=== PATIENT | male | born 1985 | race Caucasian/White ===

== ENCOUNTER 2022-09-28 18:14 | Emergency (ER) | payer OTHER, SELFPAY ==
[2022-09-28 18:17] VITALS: BP 118/76; PULSE 96; RESP 15; O2SAT 96; BMI 31.5
[2022-09-28 18:37] VITALS: RESP 14
--- NOTE | 2022-09-28 18:53 | W.ED.GENADLT ---
HPI - General Adult General: Chief complaint: General Medical Stated complaint: N/V/D Time Seen by Provider: 09/28/22 18:20 Source: patient Mode of arrival: ambulatory Limitations: no limitations History of Present Illness: Patient presents to the emergency department today after being sent over by urgent care for refill on his Suboxone. Patient [place] the [place] and does not have an appointment with behavioral health until 10/09 when he states he will be seeing Dr. Nettles. States he has run out of his Suboxone and has already gotten a short-term refill from a doctor at another clinic here [facility]. He states he attempted to go back for continued medication management but, patient reports the doctor was not there yesterday. He said the clinic told him he could go to an urgent care the emergency department and get a refill. He originally went to urgent care who sent him here. He states he has been out of his medication for couple of days. Review of Systems General: Reports: 10 or more systems reviewed and unremarkable except in HPI and below Physical Exam Const: COMMON NORMALS: no acute distress, average body habitus and patient oriented x3 HENMT: COMMON NORMALS: normocephalic, atraumatic, hearing grossly normal bilaterally, Normal external nose present and moist oral mucous membranes HEAD & SCALP: normocephalic and atraumatic NOSE: Normal external nose present Eye: COMMON NORMALS: Equal, round and reactive pupils present, EOMs intact bilaterally and conjunctivae normal CONJUNCTIVA: Yes conjunctivae normal PUPIL: Yes Equal, round and reactive pupils present Neck/C-Spine: COMMON NORMALS: full ROM Resp: COMMON NORMALS: normal respiratory effort, No retractions and No use of accessory muscles Cardio: COMMON NORMALS: regular rate RATE: regular rate Back/Pelvis: COMMON NORMALS: thoraco-lumbar ROM normal Extremity: COMMON NORMALS: normal to inspection, full ROM and capillary refill normal Neuro: COMMON NORMALS: patient oriented x3 Psych: COMMON NORMALS: mental status grossly normal, Normal thought process present, cooperative, normal affect and activity/motor behavior normal THOUGHT PROCESS: Normal thought process present Course Vital Signs: Vital signs: Vital Signs Pulse Rate 96 09/28/22 18:17 Respiratory Rate 14 09/28/22 18:37 Blood Pressure 118/76 09/28/22 18:17 Pulse Oximetry 96 09/28/22 18:17 Oxygen Delivery Me thod Room Air 09/28/22 18:17 MDM - General Adult Medical Decision Making Discussed with patient that the emergency department does not dispense Suboxone. Patient indicates his frustration of being told to go different places for his medication. He is requesting a Suboxone while he is here in the emergency department. Explained to him that we do not dispense Suboxone here or write prescriptions for it. He must get it from his behavioral health doctor. I did provide him the contact information for [facility] in [place] for him to call and see if they would be willing to help him short-term. Otherwise, he needs to reach out to his previous doctor for Suboxone dispensing. Case was discussed with Dr. Hawkins who agreed to this appropriate treatment plan. Differential Diagnosis DDx: Medication refill, opioid abuse, drug-seeking, withdrawal Discharge Plan Discharge Patient Disposition: Home Clinical Impression: Encounter for medication refill Condition: Stable Prescriptions: No Action buprenorphine-naloxone [Suboxone] 4-1 mg film 1 film buccal TID PRN (Reason: drug abuse) Qty: 30 0RF Discharge Orders: Discharge ED (Routine); Ordered 09/28/22 Ordered By: Marcela Gatica Referrals: Michell Alexander MD [Primary Care Provider] - Discharge Diet: Usual diet Discharge Activity: Resume usual activity Patient Instructions: Buprenorphine/Naloxone (Into the mouth) ([place], Suboxone,... Activity Restrictions/Additional Instructions: The emergency department is not able to dispense Suboxone. I have looked into the walk-in addiction treatment clinic in [place] and have provided you the information to call them regarding short-term treatment and medication management before seeing Dr. Nettles. Coding Level of Care Code ED Vice President Of Finance for Jake Huang
[2022-09-28] MEDS: LORazepam 2 mg Tablet PO (19:31)
== END 2022-09-28 19:35 | disposition home or self-care (01) ==
PROVIDERS: Emergency Provider Physician Assistant; PCP Family Medicine
DX: Z76.0 Encounter for issue of repeat prescription (principal); F41.9 Anxiety disorder, unspecified; G47.00 Insomnia, unspecified
CPT/HCPCS: 99283

== ENCOUNTER → 2023-02-06 11:46 | Outpatient (BNVA) | payer MEDICAID, SELFPAY | PROVIDERS: Visit Provider Family Medicine | DX: R09.89 Other specified symptoms and signs involving the circulatory and respiratory systems; Z20.822 Contact with and (suspected) exposure to COVID-19 | CPT/HCPCS: 87400; 87426 ==

== ENCOUNTER 2024-01-13 07:30 | Outpatient (CLI) | payer OTHER, SELFPAY ==
--- NOTE | 2024-01-13 07:38 | US_ITS ---
WS: [id number] RIGHT UPPER QUADRANT ULTRASOUND HISTORY: ELEVATED LIVER ENZYMES COMPARISON: None available. Technically very difficult ultrasound evaluation of the RIGHT upper quadrant due to body habitus. Liver: 18.1 cm in length. Mildly enlarged liver. Hepatic steatosis. No mass identified but the entire liver is not well visualized. No bile duct dilatation. Portal Vein: Normal hepatopetal flow with monophasic waveform. Gallbladder: Normally distended gallbladder with no stones or wall thickening. CBD: 0.5 cm Pancreas: Not visualized. Right kidney: 11.4 cm in length. Poorly visualized kidney. It would be difficult to exclude mass. The re is no hydronephrosis. Aorta and IVC: Limited. No ascites. US/US abdomen limited [id number] IMPRESSION: 1. Technically difficult RIGHT upper quadrant ultrasound evaluation. 2. Hepatic steatosis and mild hepatic enlargement. 3. Negative gallbladder.
== END 2024-01-13 07:33 | disposition home or self-care (01) ==
PROVIDERS: PCP Family Medicine; Visit Provider Family Medicine
DX: R74.01 Elevation of levels of liver transaminase levels (principal); K76.0 Fatty (change of) liver, not elsewhere classified
CPT/HCPCS: 76705

== ENCOUNTER 2024-03-16 20:00 | Outpatient (CLI) | payer OTHER, SELFPAY | END 2024-03-16 20:01 | disposition home or self-care (01) | LOC: SLEEP 21:49 | PROVIDERS: PCP Family Medicine; Visit Provider Family Medicine | DX: G47.33 Obstructive sleep apnea (adult) (pediatric) (principal) | CPT/HCPCS: 95810 ==